=== PATIENT | female | born 1995 | race Two or more races ===

== ENCOUNTER 2020-01-16 10:41 | Emergency (ER) | payer OTHER ==
[~2020-01-16] VITALS: Ht 154.9 cm; Wt 49.9 kg
== END 2020-01-16 18:11 | disposition home or self-care (01) ==
LOC: ER 10:41
DX: U07.1 COVID-19 (principal); R06.02 Shortness of breath

== ENCOUNTER 2021-06-28 20:00 | Emergency (ER) | payer OTHER ==
[~2021-06-28] VITALS: Ht 154.9 cm; Wt 54.4 kg
[2021-06-28] MEDS ORDERED: ZYRTEC10 M3 PO (20:07)
[2021-06-28] MEDS ORDERED: MEDROLPACK PO (22:00)
== END 2021-06-28 22:07 | disposition home or self-care (01) ==
LOC: ER 20:00
DX: R20.2 Paresthesia of skin (principal)

== ENCOUNTER 2022-01-01 08:13 | Outpatient (CLI) | payer OTHER ==
[~2022-01-01 08:13] MED LIST: MEDROLPACK PO; ZYRTEC10 M3 PO
== END 2022-01-01 08:15 | disposition home or self-care (01) ==
LOC: SONOGRAMA 08:13
PROVIDERS: ATTEND Otolaryngology
DX: R10.2 Pelvic and perineal pain (principal)

== ENCOUNTER 2024-09-25 11:37 | Emergency (ER) | payer OTHER ==
[~2024-09-25] VITALS: Ht 154.9 cm; Wt 58.1 kg
[2024-09-25 13:38] LABS: BASO % 0.2 % (0.1-1.2); EOS # 0.04 (0.04-0.54); EOS % 0.5 % (0.7-7.0); HEMOGLOBIN 11.1 g/dL (11.2-15.7); LYMPH # 1.34 (1.18-3.74); MONO % 7.2 % (4.7-12.5); NEUT # 6.33 (1.56-6.13); NEUT % 75.6 % (34.0-71.1); PLATELET COUNT 235 K/uL (163-369); RED CELL DISTRIBUTION WIDTH 13.9 % (11.6-14.4)
[2024-09-25 13:59] LABS: URINE APPEARANCE Clear; URINE BILIRRUBIN Negative (NEGATIVE); URINE BLOOD Negative; URINE COLOR Yellow; URINE GLUCOSE Negative (NEGATIVE); URINE KETONE Negative (NEGATIVE); URINE LEUKOCYTE Negative; URINE NITRATE Negative; URINE PROTEIN Negative (NEGATIVE); URINE UROBILINOGEN 0.2 E.U./dl
[2024-09-25 14:03] LABS: URINE BACTERIA 241.1 uL (0.0-1933); URINE RBC 4.1 uL (0.0-20.8); URINE WBC 3.4 uL (0.0-23.2)
[2024-09-25 14:19] LABS: URINE EPITHELIAL CELLS 1.2 uL (0.0-38.8)
== END 2024-09-25 16:02 | disposition home or self-care (01) ==
LOC: ER 11:37
PROVIDERS: Preventive Medicine Public Health & General Preventive Medicine
DX: O99.891 Other specified diseases and conditions complicating pregnancy (principal); Z3A.18 18 weeks gestation of pregnancy; S39.82XA Other specified injuries of lower back, initial encounter; W18.39XA Other fall on same level, initial encounter; Y93.89 Activity, other specified; Y92.89 Other specified places as the place of occurrence of the external cause

== ENCOUNTER 2025-02-11 14:45 | Inpatient (IN) | payer OTHER ==
[~2025-02-11] VITALS: Ht 154.9 cm; Wt 71.7 kg
[2025-02-19 20:52] VITALS: BP 112/70; O2SAT 98
[2025-02-19] MEDS ORDERED: PEPCID AC20 MG PO (21:03)
[2025-02-19] MEDS ORDERED: PRENATA CHEWAB1 EACH PO (21:03)
[2025-02-19] MEDS ORDERED: RINGERS SOLUTION,LACTATED 1,000 ML IV SCH (21:30)
[2025-02-19 22:14] LABS: BASO % 0.3 % (0.1-1.2); EOS # 0.07 (0.04-0.54); EOS % 0.9 % (0.7-7.0); LYMPH # 1.88 (1.18-3.74); LYMPH % 24.7 % (19.3-53.1); MEAN PLATELET VOLUME 10.40 fl (9.4-12.4); MONO # 1.14 (0.24-0.82); NEUT # 4.45 (1.56-6.13); NEUT % 58.3 % (34.0-71.1); RED CELL DISTRIBUTION WIDTH 16.5 % (11.6-14.4); URINE APPEARANCE Clear; URINE BILIRRUBIN Negative (NEGATIVE); URINE BLOOD Negative; URINE COLOR Yellow; URINE KETONE Negative (NEGATIVE); URINE LEUKOCYTE Negative; URINE NITRATE Negative; URINE PROTEIN Trace (NEGATIVE); URINE UROBILINOGEN 1.0 E.U./dl
[2025-02-19 22:17] LABS: MONO % 15.0 % (4.7-12.5); URINE BACTERIA 2809.9 uL (0.0-1933); URINE EPITHELIAL CELLS 10.9 uL (0.0-38.8); URINE RBC 5.5 uL (0.0-20.8); URINE WBC 12.6 uL (0.0-23.2)
[2025-02-19 22:31] LABS: URINE CAST 0.29 uL (0.0-1.40); URINE GLUCOSE 250 MG/DL (NEGATIVE)
[2025-02-19 22:36] LABS: INR < 0.93
[2025-02-19 22:39] LABS: ALT/SGPT 22.0 U/L (12-78); AST/SGOT 16.0 U/L (15-37); BILIRUBIN TOTAL 0.35 mg/dL (0.3-1.2); BUN CREA RATIO 18.0 (7.0-25.0); CREATININE SERUM 0.49 mg/dL (0.55-1.02); GFR 147.3; GLOBULINA 3.1 G/DL (2.4-3.5); GLUCOSE FASTING 88.0 mg/dL (65-100); OSMOLALITY SERUM 276.0 MOSM/KG (275-295)
[2025-02-19 23:40] VITALS: BP 114/52
[2025-02-20 03:18] VITALS: BP 110/62
[2025-02-20] MEDS ORDERED: OXYTOCIN 500 ML IV ONE (07:00)
[2025-02-20] MEDS ORDERED: OXYTOCIN 20 UNITS/500ML RL PIGGYBAG IV ONE (07:20)
[2025-02-20 07:35] VITALS: BP 124/64
[2025-02-20 11:24] VITALS: BP 95/54
[2025-02-20 15:46] VITALS: BP 124/61
[2025-02-20 19:00] VITALS: BP 131/67; O2SAT 100
[2025-02-20 23:26] VITALS: BP 134/61
[2025-02-20] MEDS ORDERED: CHLORHEXIDINE GLUCONATE 120 ML BOTTLE TOP ONE (23:54)
[2025-02-20] MEDS ORDERED: LIDOCAINE HCL 1% 10ML VIAL ONE (23:54)
[2025-02-20] MEDS ORDERED: OXYTOCIN 20 UNITS/1000ML RL PIGGYBAG IV ONE (23:54)
[2025-02-20] MEDS ORDERED: ERYTHROMYCIN BASE OPHT 1GM EACH TUBE OP ONE (23:54)
[2025-02-21] MEDS ORDERED: ERYTHROMYCIN BASE OPHT 1GM EACH TUBE OP ONE (01:39)
[2025-02-21] MEDS ORDERED: OXYTOCIN 10 UNITS/ML VIAL ONE ×2 (01:39→04:24)
[2025-02-21] MEDS ORDERED: METHYLERGONOVINE MALEATE 0.2 MG/ML AMPUL ONE (03:10)
[2025-02-21] MEDS ORDERED: CARBOPROST TROMETHAMINE 250 MCG/ML AMPUL IM ONE ×2 (03:15→03:23)
[2025-02-21] MEDS ORDERED: FAMOTIDINE/PF 20 MG/2 ML VIAL ONE (03:56)
[2025-02-21] MEDS ORDERED: MORPHINE SULFATE 4 MG/ML CARTRIDGE IV PRN (04:15)
[2025-02-21] MEDS ORDERED: OXYTOCIN 1,000 ML IV SCH (04:15)
[2025-02-21] MEDS ORDERED: KETOROLAC TROMETHAMINE 30 MG VIAL IV SCH (06:00)
[2025-02-21 06:12] VITALS: BP 114/62
[2025-02-21 08:00] VITALS: BP 116/70
[2025-02-21] MEDS ORDERED: METHYLERGONOVINE MALEATE 0.2 MG TABLET PO SCH ×2 (09:00)
[2025-02-21 10:56] LABS: BASO % 0.3 % (0.1-1.2); EOS # 0.00 (0.04-0.54); EOS % 0.0 % (0.7-7.0); LYMPH # 1.31 (1.18-3.74); LYMPH % 8.2 % (19.3-53.1); MEAN PLATELET VOLUME 10.40 fl (9.4-12.4); MONO # 1.66 (0.24-0.82); MONO % 10.4 % (4.7-12.5); NEUT # 12.91 (1.56-6.13); NEUT % 80.8 % (34.0-71.1); RED CELL DISTRIBUTION WIDTH 16.2 % (11.6-14.4)
[2025-02-21] MEDS ORDERED: KETOROLAC TROMETHAMINE 60 MG VIAL IM NR (13:45)
[2025-02-21 17:37] VITALS: BP 109/69
[2025-02-22 01:26] VITALS: BP 110/65
[2025-02-22] MEDS ORDERED: OxyCODONE HCL 5 MG TABLET (ROXICODONE) PO PRN (06:00)
[2025-02-22 08:00] VITALS: BP 100/64
[2025-02-22] MEDS ORDERED: FF) RHO(D) IMMUNE GLOBULIN (POM) IM NR (08:00)
[2025-02-22] MEDS ORDERED: GABAPENTIN 300 MG CAPSULE PO SCH (09:00)
[2025-02-22 16:00] VITALS: BP 103/64
[2025-02-23 00:47] VITALS: BP 96/63; O2SAT 95
[2025-02-23 10:03] VITALS: BP 115/72
== END 2025-02-23 12:03 | disposition home or self-care (01) | DRG 788 ==
LOC: OB/GYN 02-19 14:45 → LDR 02-19 20:48 → OB/GYN 02-21 03:35
PROVIDERS: ADMIT Obstetrics & Gynecology; ATTEND Obstetrics & Gynecology
PROC: 4A1HXCZ Monitoring of Products of Conception, Cardiac Rate, External Approach (ICD-10-PCS; 2025-02-19)
PROC: 10D00Z1 Extraction of Products of Conception, Low, Open Approach (ICD-10-PCS; principal; 2025-02-21 07:00)
DX: O33.8 Maternal care for disproportion of other origin (principal); Z3A.39 39 weeks gestation of pregnancy; Z37.0 Single live birth

== ENCOUNTER 2025-02-12 10:22 | Outpatient (CLI) | payer OTHER | END 2025-02-12 11:04 | disposition home or self-care (01) | LOC: NST 10:22 | PROVIDERS: ATTEND Obstetrics & Gynecology Gynecology | DX: Z34.83 Encounter for supervision of other normal pregnancy, third trimester (principal) ==

== ENCOUNTER 2025-02-25 01:38 | Emergency (ER) | payer OTHER ==
[~2025-02-25] VITALS: Ht 154.9 cm; Wt 66.7 kg
[~2025-02-25 01:38] MED LIST changes: +PEPCID AC20 MG PO; +PRENATA CHEWAB1 EACH PO
[2025-02-25] MEDS ORDERED: 0.9 % SODIUM CHLORIDE 1,000 ML IV SCH (03:30)
[2025-02-25] MEDS ORDERED: CEFTRIAXONE SODIUM 2,000 MG VIAL IV ONE (03:30)
[2025-02-25 03:55] LABS: URINE APPEARANCE Clear; URINE BILIRRUBIN Negative (NEGATIVE); URINE BLOOD Large; URINE COLOR Orange; URINE GLUCOSE Negative (NEGATIVE); URINE KETONE Negative (NEGATIVE); URINE LEUKOCYTE Moderate; URINE NITRATE Negative; URINE PROTEIN Trace (NEGATIVE); URINE UROBILINOGEN 1.0 E.U./dl
[2025-02-25 03:58] LABS: URINE BACTERIA 885.4 uL (0.0-1933); URINE EPITHELIAL CELLS 35.8 uL (0.0-38.8); URINE RBC 5.7 uL (0.0-20.8); URINE WBC 177.7 uL (0.0-23.2)
[2025-02-25 04:01] LABS: URINE CAST 0.00 uL (0.0-1.40)
[2025-02-25 04:02] LABS: BASO % 0.2 % (0.1-1.2); EOS # 0.04 (0.04-0.54); EOS % 0.4 % (0.7-7.0); LYMPH # 1.22 (1.18-3.74); LYMPH % 12.1 % (19.3-53.1); MEAN PLATELET VOLUME 8.90 fl (9.4-12.4); MONO # 1.01 (0.24-0.82); MONO % 10.0 % (4.7-12.5); NEUT # 7.72 (1.56-6.13); NEUT % 76.5 % (34.0-71.1); RED CELL DISTRIBUTION WIDTH 15.4 % (11.6-14.4)
[2025-02-25 04:13] LABS: ALT/SGPT 28.0 U/L (12-78); AST/SGOT 16.0 U/L (15-37); BILIRUBIN TOTAL 0.35 mg/dL (0.3-1.2); BUN CREA RATIO 15.0 (7.0-25.0); CREATININE SERUM 0.48 mg/dL (0.55-1.02); GFR 150.85; GLOBULINA 3.5 G/DL (2.4-3.5); GLUCOSE FASTING 122.0 mg/dL (65-100); OSMOLALITY SERUM 277.0 MOSM/KG (275-295)
[2025-02-25] MEDS ORDERED: IRON EC324 MG PO (06:44)
[2025-02-25] MEDS ORDERED: CEFADROXIL1 GM PO (06:44)
== END 2025-02-25 07:53 | disposition home or self-care (01) ==
LOC: ER 01:39
PROVIDERS: Physician Assistant Medical
DX: N39.0 Urinary tract infection, site not specified (principal); O90.81 Anemia of the puerperium